=== PATIENT | female | born 1980 | race Caucasian/White ===

== ENCOUNTER 2021-08-11 17:17 | Emergency (ER) | payer BC, OTHER ==
[~2021-08-11] VITALS: Ht 162.6 cm; Wt 62.3 kg
[2021-08-11 18:07] LABS: BASO # 0.05 K/mm3 (0.02-0.10); EOS # 0.04 K/mm3 (0.04-0.40); EOS % 0.3 % (1.0-5.0); HEMATOCRIT 38.8 % (37.0-47.0); HEMOGLOBIN 12.8 g/dL (12.5-16.0); LYMPH# 1.63 K/mm3 (1.50-4.00); MEAN CELL VOLUME 90 fl (78-100); MEAN CORPUSCULAR HEMOGLOBIN 30 pg (27-31); MEAN CORPUSCULAR HGB CONC 33 g/dL (33-37); MEAN PLATELET VOLUME 10.6 fl (7.4-10.4); MONO # 0.71 K/mm3 (0.20-0.80); NEU # 11.04 K/mm3 (1.40-6.50); PLATELET COUNT 239 K/mm3 (130-400); RED CELL DISTRIBUTION WIDTH 12.1 % (11.5-14.5); WHITE BLOOD COUNT 13.5 K/mm3 (4.8-10.8)
[2021-08-11 18:19] LABS: ALBUMIN 4.2 g/dL (3.5-5.0)
[2021-08-11 18:20] LABS: POTASSIUM 4.5 mmol/L (3.5-5.1)
[2021-08-11 18:21] LABS: CALCIUM 9.2 mg/dL (8.3-10.5)
[2021-08-11 18:22] LABS: TOTAL PROTEIN 6.8 g/dL (6.4-8.3)
[2021-08-11 18:24] LABS: TOTAL BILIRUBIN 0.6 mg/dL (0.2-1.2)
[2021-08-11] MEDS ORDERED: ADDERALL XR30 MG PO (19:41)
[2021-08-11] MEDS ORDERED: ADDERALL 10 MG10 MG PO (19:41)
[2021-08-11 19:55] LABS: URINE APPEARANCE HAZY; URINE COLOR LIGHT YELOW
[2021-08-11 19:56] LABS: URINE BILIRUBIN NEGATIVE (NEGATIVE); URINE BLOOD TRACE (NEGATIVE); URINE GLUCOSE NEGATIVE (NEGATIVE); URINE KETONE NEGATIVE (NEGATIVE); URINE LEUKOCYTE ESTERASE NEGATIVE (NEGATIVE); URINE NITRATE NEGATIVE (NEGATIVE); URINE PROTEIN(semi-quant) 1+ (NEGATIVE); URINE UROBILINOGEN NORMAL (NORMAL); URINE WBC 0-1 /hpf (0-3)
[2021-08-11 19:57] LABS: URINE MUCUS PRESENT (NOT PRESENT)
[2021-08-11] MEDS ORDERED: ZOFRAN ODT4 MG PO (21:26)
[2021-08-11] MEDS ORDERED: PERCOCET 325 MG1 TA2 PO ×2 (21:26→21:34)
[2021-08-11] MEDS ORDERED: CEPHALEXIN500 M1 PO (21:26)
[2021-08-11 22:04] VITALS: BP 108/76
== END 2021-08-11 22:04 | disposition home or self-care (01) ==
LOC: ED 17:17
PROVIDERS: Family Medicine
DX: N12 Tubulo-interstitial nephritis, not specified as acute or chronic (principal); N83.201 Unspecified ovarian cyst, right side
CPT/HCPCS: J0696; J2405; J2550; J3010; J7030

== ENCOUNTER → 2021-09-23 | Outpatient (CLI) | payer BC, OTHER ==
[~2021-09-23] VITALS: Ht 162.6 cm; Wt 62.3 kg
[~2021-09-23] MED LIST: ADDERALL 10 MG10 MG PO; ADDERALL XR30 MG PO; CEPHALEXIN500 M1 PO; LAMICTAL 25MG T25 MG PO; LAMOTRIGINE100 M3 PO; PERCOCET 325 MG1 TA2 PO; ZOFRAN ODT4 MG PO
[2021-09-23 15:23] VITALS: BP 123/80
== END ==
LOC: AMSURD 14:57
DX: N30.90 Cystitis, unspecified without hematuria (principal)
CPT/HCPCS: J0696

== ENCOUNTER 2022-08-26 23:41 | Emergency (ER) | payer BC, OTHER ==
[~2022-08-26] VITALS: Wt 63.6 kg
[2022-08-27] MEDS ORDERED: WELLBUTRIN SR100 M3 PO (00:03)
[2022-08-27] MEDS ORDERED: ESCITALOPRAM10 MG PO (00:03)
[2022-08-27] MEDS ORDERED: HYDROXYZINE HCL25 M1 PO (00:04)
[2022-08-27 00:27] LABS: BASO # 0.05 K/mm3 (0.02-0.10); HEMATOCRIT 37.6 % (37.0-47.0); HEMOGLOBIN 12.5 g/dL (12.5-16.0); LYMPH# 2.57 K/mm3 (1.50-4.00); MEAN CELL VOLUME 91 fl (78-100); MEAN CORPUSCULAR HEMOGLOBIN 30 pg (27-31); MEAN CORPUSCULAR HGB CONC 33 g/dL (33-37); MEAN PLATELET VOLUME 10.5 fl (7.4-10.4); MONO # 0.65 K/mm3 (0.20-0.80); NEU # 6.33 K/mm3 (1.40-6.50); PLATELET COUNT 244 K/mm3 (130-400); RED BLOOD COUNT 4.12 M/mm3 (4.10-5.30); RED CELL DISTRIBUTION WIDTH 12.3 % (11.5-14.5); WHITE BLOOD COUNT 9.7 K/mm3 (4.8-10.8)
[2022-08-27 00:33] LABS: POTASSIUM 3.6 mmol/L (3.5-5.1)
[2022-08-27 00:34] LABS: CALCIUM 9.5 mg/dL (8.3-10.5)
[2022-08-27 02:10] LABS: ALCOHOL IN-HOUSE < 10 mg/dL (<10)
[2022-08-27 07:32] LABS: URINE APPEARANCE CLEAR; URINE BILIRUBIN NEGATIVE (NEGATIVE); URINE BLOOD NEGATIVE (NEGATIVE); URINE COLOR YELLOW; URINE GLUCOSE NEGATIVE (NEGATIVE); URINE KETONE 1+ (NEGATIVE); URINE LEUKOCYTE ESTERASE NEGATIVE (NEGATIVE); URINE MUCUS PRESENT (NOT PRESENT); URINE NITRATE NEGATIVE (NEGATIVE); URINE PROTEIN(semi-quant) 1+ (NEGATIVE); URINE UROBILINOGEN NORMAL (NORMAL); URINE WBC 0-1 /hpf (0-3)
[2022-08-27 09:36] VITALS: BP 112/73
== END 2022-08-27 09:40 | disposition home or self-care (01) ==
LOC: ED 23:41
PROVIDERS: Family Medicine
DX: T43.222A Poisoning by selective serotonin reuptake inhibitors, intentional self-harm, initial encounter (principal); T43.592A Poisoning by other antipsychotics and neuroleptics, intentional self-harm, initial encounter